=== PATIENT | female | born 1945 | race Caucasian/White ===

== ENCOUNTER → 2022-07-28 | Day surgery (SDC) | payer MEDICARE, OTHER ==
[2022-07-25 11:14] LABS: BASOPHILS # (AUTO) 0.1 (0.0-0.1); BASOPHILS % 0.5 % (0.0-1.0); EOSINOPHILS # (AUTO) 0.4 (0.0-0.4); EOSINOPHILS % 4.6 % (0.0-6.0); LYMPHOCYTES # (AUTO) 2.4 (1.0-3.2); LYMPHOCYTES % 25.7 % (18.0-39.1); MEAN CORPUSCULAR HEMOGLOBIN 31.5 pg (28-32); MEAN CORPUSCULAR HGB CONC 31.8 g/dL (31-35); MEAN CORPUSCULAR VOLUME 99.1 fL (81-99); MONOCYTES # (AUTO) 0.6 (0.2-0.8); NEUTROPHILS # (AUTO) 5.7 (2.1-6.9); NEUTROPHILS % 61.9 % (38.7-80.0); PLATELET COUNT 243 x10e3/uL (140-360); RED BLOOD COUNT 4.44 x10e6/uL (3.6-5.1); RED CELL DISTRIBUTION WIDTH 13.8 % (11.7-14.4)
[2022-07-25 11:34] LABS: ANION GAP 18.3 mmol/L (8-16); CALCIUM 9.5 mg/dL (8.4-10.2); CREATININE, SERUM 0.9 mg/dL (0.57-1.11); POTASSIUM 4.3 mmol/L (3.5-5.1)
[~2022-07-28] MED LIST: ASPIRIN325 MG PO; ATORVASTATIN CA20 MG PO; CEFTRIAXONE 1 GM VIAL ONE; CLOPIDOGREL75 MG PO; DEXAMETHASONE SOD PHOS INJ 4 MG/ML SDV ONE; DICYCLOMINE HCL20 MG PO; EPHEDRINE SULFATE INJ 50 MG/ML VIAL ONE; FENTANYL CITRATE/PF 100MCG/2 ML INJ ONE; IMITREX50 MG PO; KETOROLAC TROMETHAMINE 30 MG/ML VIAL ONE; LACTATED RINGER'S 1,000 ML ONE; LIDOCAINE HCL 2% LOCAL INJ 5 ML SDV VIAL INJ ONE; LORAZEPAM2 MG/1 M2 PO; METHIMAZOLE5 MG; ONDANSETRON HCL INJ 2MG/ML 2ML 2 MG/ML VIAL ONE; POVIDONE IODINE 0.05% 0.05 % ML PO ONE; PRISTIQ ER50 MG PO; PROPOFOL IV EMULSION 10 MG/ML 20 ML VIAL ONE; SEVOFLURANE INHAL SOLN 250 ML PEN BTL ONE; TRAMADOL HCL100 MG; TRAZODONE HCL50 MG PO; VITAFOL-OB+DHA1 EACH; VITAMIN D250 MC1 PO
[2022-07-28 14:25] VITALS: BP 120/60
== END | disposition home or self-care (01) ==
LOC: OR 08:54
PROVIDERS: ATTEND Urology
DX: N20.0 Calculus of kidney (principal); Z96.0 Presence of urogenital implants; J44.9 Chronic obstructive pulmonary disease, unspecified; F17.200 Nicotine dependence, unspecified, uncomplicated; Z88.6 Allergy status to analgesic agent; Z88.2 Allergy status to sulfonamides; Z88.8 Allergy status to other drugs, medicaments and biological substances; Z01.810 Encounter for preprocedural cardiovascular examination; Z01.812 Encounter for preprocedural laboratory examination; Z01.818 Encounter for other preprocedural examination; Z79.02 Long term (current) use of antithrombotics/antiplatelets; Z79.82 Long term (current) use of aspirin; Z79.899 Other long term (current) drug therapy; Z85.3 Personal history of malignant neoplasm of breast
CPT/HCPCS: 36415; 50590; 71046; 74018; 80048; 83970; 84550; 85025; 93005; J0696; J1100; J1885; J2001; J2405; J2704; J3010; J7121

== ENCOUNTER → 2022-08-11 | Day surgery (SDC) | payer MEDICARE, OTHER ==
[~2022-08-11] MED LIST changes: -DEXAMETHASONE SOD PHOS INJ 4 MG/ML SDV ONE; -EPHEDRINE SULFATE INJ 50 MG/ML VIAL ONE; +FAMOTIDINE 20 MG/2 ML VIAL IV ONE; +GENTAMICIN 80MG/NS 100 ML 200 ML IV ONE; +IOPAMIDOL 610MG/1ML 300 MG/ML VIAL IV ONE; -LIDOCAINE HCL 2% LOCAL INJ 5 ML SDV VIAL INJ ONE; -ONDANSETRON HCL INJ 2MG/ML 2ML 2 MG/ML VIAL ONE; +PHENAZOPYRIDINE HCL 100 MG TAB ONE; -PROPOFOL IV EMULSION 10 MG/ML 20 ML VIAL ONE; -SEVOFLURANE INHAL SOLN 250 ML PEN BTL ONE
[2022-08-11 17:05] VITALS: BP 128/64
== END | disposition home or self-care (01) ==
LOC: OR 11:53
PROVIDERS: ATTEND Urology
DX: N20.0 Calculus of kidney (principal); Z46.6 Encounter for fitting and adjustment of urinary device; N81.10 Cystocele, unspecified; N81.6 Rectocele; N95.2 Postmenopausal atrophic vaginitis; Z79.02 Long term (current) use of antithrombotics/antiplatelets; Z79.82 Long term (current) use of aspirin; Z79.899 Other long term (current) drug therapy
CPT/HCPCS: 52356; 74018; 74420; 87086; 87186; 88300; C1766; C1769; C1874; J0696; J1580; J1885; J3010; J7121; Q9967

== ENCOUNTER 2022-08-13 12:24 | Emergency (ER) | payer MEDICARE, OTHER ==
[~2022-08-13] VITALS: Ht 170.2 cm; Wt 78.5 kg
[~2022-08-13 12:24] MED LIST changes: -CEFTRIAXONE 1 GM VIAL ONE; -FAMOTIDINE 20 MG/2 ML VIAL IV ONE; -FENTANYL CITRATE/PF 100MCG/2 ML INJ ONE; -GENTAMICIN 80MG/NS 100 ML 200 ML IV ONE; -IOPAMIDOL 610MG/1ML 300 MG/ML VIAL IV ONE; -KETOROLAC TROMETHAMINE 30 MG/ML VIAL ONE; -LACTATED RINGER'S 1,000 ML ONE; -PHENAZOPYRIDINE HCL 100 MG TAB ONE; -POVIDONE IODINE 0.05% 0.05 % ML PO ONE
== END 2022-08-13 12:55 | disposition home or self-care (01) ==
LOC: ER 12:29
DX: M53.3 Sacrococcygeal disorders, not elsewhere classified (principal); M79.652 Pain in left thigh; E78.5 Hyperlipidemia, unspecified; F41.9 Anxiety disorder, unspecified; Z87.442 Personal history of urinary calculi; Z85.3 Personal history of malignant neoplasm of breast; Z85.42 Personal history of malignant neoplasm of other parts of uterus
CPT/HCPCS: 99282